=== PATIENT | female | born 1940 ===

== ENCOUNTER 2018-08-15 06:05 | Day surgery (SDC) | payer OTHER ==
[~2018-08-15 06:05] MED LIST: ASA81 MG PO; CARDURA XL4 MG PO; HYZAAR 100-251 EACH PO; TOPROL XL100 M1 PO; ZOCOR20 MG PO
== END 2018-08-15 10:55 | disposition home or self-care (01) ==
LOC: CIR.AMB 06:05 → EDBD 13:00
DX: L72.0 Epidermal cyst (principal)